=== PATIENT | male | born 1990 | race Caucasian/White ===

== ENCOUNTER 2016-09-22 16:53 | Emergency (ER) | payer OTHER ==
[2016-09-22 17:07] VITALS: BP 127/73
--- NOTE | 2016-09-22 17:11 | PROVIDER DOCUMENTATION ---
HPI-Rash/Wound/ReCheck <YeyoLuciajanes Larkin - Last Filed: 09/22/16 17:11> - General Source: patient - History of Present Illness-Dermatology Similar Symptoms Previously?: Yes Recently seen or treated by another doctor?: No - Recheck Treated days ago.: 10 Previous Treatment: laceration repair Antibiotics given: none Symptoms since procedure:: reports: no complaints <Gucci Vargas - Last Filed: 09/22/16 17:22> - General Chief Complaint: Suture/Staple Removal Stated Complaint: SUTURE/STAPLE REMOVAL Time Seen by Provider: 09/22/16 17:08 Allergies/Adverse Reactions: Allergies Allergy/AdvReac Type Severity Reaction Status Date / Time No Known Allergies Allergy Verified 09/13/16 02:46 Home Medications: No Home Medications 09/13/16 - History of Present Illness-Dermatology Nature of Presenting Problem: patient is a 26 y/o m that presents to the ER needing sutures removed. Had two placed to forehead x 10 days. Has had no complaints, no fever/chills, redness or oozing to wound (Gucci Vargas) Review of Systems - Adult - REVIEW OF SYSTEMS - ADULT Constitutional: reports: no symptoms reported Eyes: reports: no symptoms reported Ears, Nose, Mouth & Throat: reports: no symptoms reported Cardiovascular: reports: no symptoms reported Respiratory: reports: no symptoms reported Gastrointestinal: reports: no symptoms reported Genitourinary: reports: no symptoms reported Musculoskeletal: reports: no symptoms reported Integumentary: reports: no symptoms reported Neurological: reports: no symptoms reported Psychiatric: reports: no symptoms reported Endocrine: reports: no symptoms reported Hematologic/Lymphatic: reports: no symptoms reported Allergic/Immunologic: reports: no symptoms reported All Other Systems: Reviewed and Negative <Gucci Vargas - Last Filed: 09/22/16 17:22> Past History - Adult - PAST MEDICAL HISTORY-ADULT Major Childhood Illnesses: reports: denies history Cardiovascular: reports: denies history Respiratory: reports: denies history Gastrointestinal: reports: denies history Obstetrical/Gynecological: reports: denies history Genitourinary: reports: denies history Musculoskeletal: reports: denies history Neurological: reports: denies history Endocrine/Immune: reports: denies history Other Conditions: reports: denies history - FAMILY HISTORY Family History: reviewed, not pertinent <Lucia Orona - Last Filed: 09/22/16 17:11> - PAST MEDICAL HISTORY-ADULT Review of Records: reports: Old Records Reviewed, Nursing Assessment Review, Medications Reviewed - PRIOR SURGERIES/PROCEDURES Surgical/Procedure History: reports: none - IMMUNIZATION STATUS Childhood Immunizations: See Nurse Assessment Flu Vaccine: See Nurse Assessment - FAMILY HISTORY Family History: reviewed, not pertinent - SOCIAL HISTORY Smoking: non-smoker Living Situation: family <Gucci Vargas - Last Filed: 09/22/16 17:22> Physical Exam-General - PHYSICAL EXAM-ADULT Initial Vital Signs Reviewed: Yes - CONSTITUTIONAL General Appearance: alert, no apparent distress - EYES Eyes: PERRL/EOMI, pink conjunctivae - HEAD, EARS, NOSE, MOUTH & THROAT HENMT: moist mucous membranes, normal ENT inspection - NECK Neck: full range of motion, normal inspection - RESPIRATORY Respiratory: no respiratory distress, no accessory muscle use - CARDIOVASCULAR Cardiovascular: regular rate, rhythm, no edema, no murmur - MUSCULOSKELETAL Extremity: normal range of motion, normal inspection - SKIN Integumentary: warm/dry, other (two sutures to forehead, well healing) - NEUROLOGIC Neurologic: grossly normal, no motor/sensory deficits - PSYCHIATRIC Psych/Mental Status: normal mood/affect, normal thought content, normal thought process, oriented x 3 <Gucci Vargas - Last Filed: 09/22/16 17:22> Progress <Lucia Orona - Last Filed: 09/22/16 17:11> <Gucci Vargas - Last Filed: 09/22/16 17:22> - PLAN OF CARE/RESULTS Progress/Plan/Lab Results: Vital Signs Temp Pulse Resp BP Pulse Ox 09/22/16 17:06 98 F 70 18 127/73 99 No Known Allergies Allergy (Verified 09/13/16 02:46) No Home Medications 09/13/16 two sutures removed, pt was clinically stable (Gucci Vargas) Departure - Departure Time of Disposition Order: 17:11 Certified Medical Emergency: Emergent <Lucia Orona - Last Filed: 09/22/16 17:11> <Gucci Vargas - Last Filed: 09/22/16 17:22> - Departure DIAGNOSIS: Visit for suture removal Disposition: HOME 01 Condition: Stable Additional Instructions: ED Follow Up Instructions: You have been treated by a care provider in the Emergency Department. These instructions are being provided to you so you can have an understanding of how to care for yourself upon discharge. Upon discharge from the Emergency Department, you are responsible for making arrangements for follow-up care by a physician of your choice. Take all prescribed medications as directed. Return to the Emergency Department immediately for any new or worsening symptoms. You may call the Physician Referral phone number at [phone] to obtain a list of Physicians who are taking new patients. Referrals: Angelina Florence MD [STAFF PHYSICIAN] - None,PCP [Primary Care Provider] - Forms: Return to School/Parent Work Instructions: Suture Removal, Care After Attestation - Physician/ Mid-level Attestation Patient care was provided by Mid-level provider ([employer]CHO[employer]SP[employer]ATION SUPERVISOR/PA):: Yes Mid-level provider:: Lucia Orona Mid-level documentation review:: The Mid-level provider documentation, treatment plan and medical decision making was reviewed by the physician who agrees with all treatment and medical decision making by the MLP. <Lucia Orona - Last Filed: 09/22/16 17:11> - Scribe Verification/Attestation Scribe:: Gucci Vargas Acting as Scribe for:: Lucia Orona Scribe documention review:: This chart was documented by a scribe and accurately reflects the service the provider performed and the decisions made by the provider. - Physician/ Mid-level Attestation Patient care was provided by Mid-level provider (SCHO[employer]SPORTATION SUPERVISOR/PA):: Yes Mid-level provider:: Lucia Orona Mid-level documentation review:: The Mid-level provider documentation, treatment plan and medical decision making was reviewed by the physician who agrees with all treatment and medical decision making by the MLP. <Gucci Vargas - Last Filed: 09/22/16 17:22> Physician Attestation
== END 2016-09-22 17:17 | disposition home or self-care (01) ==
LOC: P.ED 16:53
DX: Z48.02 Encounter for removal of sutures (principal); S01.81XD Laceration without foreign body of other part of head, subsequent encounter
CPT/HCPCS: 99282